=== PATIENT | female | born 1975 | race Caucasian/White ===

== ENCOUNTER 2019-02-07 07:57 | Day surgery (SDC) | payer OTHER ==
[2019-02-07 08:27] VITALS: BMI 35.2
[2019-02-07 08:31] VITALS: BP 129/75; TEMP 98.8
[2019-02-07] MEDS ORDERED: hydrALAZINE 20 MG/ML VIAL SLOW IVP PRN (08:41)
--- NOTE | 2019-02-07 08:45 | PDOC.FPROB ---
FMR OB H&P: HPI - History of Present Illness Chief Complaint: ECV History of Present Illness: 43 yo @ 38.0 wk by LMP c/w 9.6wk US presents for ECV for breech presentation noted on BPP performed 3 days ago. She had [place] contractions overnight which have resolved. Feels that she lost her mucous plug. Denies VB, VD, N/V. Has been checking BG and notes they are at goal. Fasting in -. Primary Care Physician: Nguyen FMR OB H&P: Current - Care : 4 Para: 3003 Gestational age: 38.0 Due date: 02/21 Dating Criteria: 9.6 wk US Course/Complications: GDM, AMA, Obesity, short intergestational period - OB Labs Blood type: A RH: positive Antibody Screen: negative HIV: negative RPR: negative HepBsAg: negative Rubella: immune Quad screen: negative Gonorrhea: negative Chlamydia: negative Pap Smear: NILM, HPV neg 05/17/2018 1 hour gtt: 137 3 hour GTT: 96, 201, 117, 146 A1c: 5.2 FMR OB H&P: History - Past Medical History PMH: Asthma, depression - OB History OB History: GDM in 2nd , insulin controlled Anemia in 2018 Seasonal allergies - DIRECTOR CORPORATE History DIRECTOR CORPORATE History: Last pap 2018 - Surgical History Sx History: None - Social History Social History: No tobacco, alcohol, drug use. FMR OB H&P: Medications - Current Home Medications: Medication Instructions Recorded Confirmed Type Vit,Calc76/Iron/Folic 1 tablet PO DAILY 02/07/19 02/07/19 History [Prenatabs Rx Tablet] Sertraline HCl 50 mg PO HS #30 tablet 02/07/19 Rx Allergies/Adverse Reactions: Allergies Allergy/AdvReac Type Severity Reaction Status Date / Time No Known Allergies Allergy Unverified 02/07/19 08:24 FMR OB H&P: ROS - Review of Systems General: denies: weight/appetite/sleep changes Cardiovascular: denies: palpitation, edema Respiratory: denies: shortness of breath, exercise intolerance Gastrointestinal: denies: nausea, vomiting Genitourinary (Female): reports: contractions. denies: dysuria, vaginal discharge, vaginal bleeding Musculoskeletal: denies: pain, swelling Neurologic: denies: weakness, headache Integumentary: denies: itching, rash Psychological: reports: depression. denies: anxiety FMR OB H&P: Vital Signs - Maternal Vital signs: Vital Signs - First Documented Temp Pulse Resp BP 98.8 F 99 18 129/75 02/07/19 08:15 02/07/19 08:15 02/07/19 08:15 02/07/19 08:15 - Heart Tones Baseline: 150 Variability: moderate Acceleration: present Deceleration: absent FMR OB H&P: Physical Exam - Physical Exam General: awake, alert and oriented HEENT: normocephalic and atraumatic Heart: RRR, normal S1/S2 General: CTAB, no respiratory distress Abdomen: soft, gravid, non-tender, bowel sound present Musculoskeletal: pulses present Skin: good tugor, capillary refill <2 seconds Lymphatic: no unusual bruising or bleeding Psychiatric: intact recent and remote memory - Pelvic Exam Vulva: normal hair distribution SVE: 08/26/high Presentation: vertex FMR OB H&P: A/P - Problem List (1) Supervision of elderly multigravida Status: Acute Code(s): O09.529 - SUPERVISION OF ELDERLY MULTIGRAVIDA, UNSPECIFIED TRIMESTER (2) GDM, class A1 Status: Acute Code(s): O24.410 - GESTATIONAL DIABETES MELLITUS IN , DIET CONTROLLED (3) Depression affecting Status: Acute Code(s): O99.340 - [facility] MENTAL DISORDERS COMPLICATING , UNSP TRIMESTER; F32.9 - MAJOR DEPRESSIVE DISORDER, SINGLE EPISODE, UNSPECIFIED (4) Short interval between pregnancies affecting in third trimester, antepartum Status: Acute Code(s): O09.893 - SUPERVISION OF OTHER HIGH RISK PREGNANCIES, THIRD TRIMESTER (5) Asthma Status: Acute Code(s): J45.909 - UNSPECIFIED ASTHMA, UNCOMPLICATED (6) Advanced maternal age (AMA), 40 years or greater Status: Acute Code(s): [id number] - Discussion: Date/Time: 02/07/19 08 sIUP - was breech on US 3 days ago, now confirmed vertex today on US - FHT 150, reactive NST GDMA1 - 1 hr 137, 3hGTT 3/4 elevated - BG at goal per patient AMA -getting weekly mBPP - quad screen wnl - has seen MFM High risk for preeclampsia - continue aspirin Depression - on sertraline Asthma - well controlled, infrequent neb use Short intergestational period - last delivery 01/16/2018, Dispo: Will discharge home. She has follow up at [facility] and BPP scheduled next Sunday. She has Pit induction scheduled for 02/17. Will need to be scanned each visit to confirm vertex. This H&P was discussed with Dr. Howard who agree with the above documentation and plan. Addendum - Attending - Attending Attestation Date/Time: 02/08/19 1034 I personally evaluated the patient and discussed the management with Dr. Arreola I agree with the History, Examination, Assessment and Plan documented above with any addition or exceptions noted below- 43 yo @38 weeks here for external cephalic version. Occ ctx, Denies LOF, VB (+) FM. Bedside USG performed which showed vertex presentation. Discussed with patient. Category 1 FHTs. Will d/c home and f/u as scheduled
== END 2019-02-07 11:20 | disposition home health service (06) ==
LOC: L&D/OP 07:57
PROVIDERS: ATTEND Family Medicine
DX: O24.410 Gestational diabetes mellitus in pregnancy, diet controlled (principal); O09.523 Supervision of elderly multigravida, third trimester; O99.343 Other mental disorders complicating pregnancy, third trimester; F32.9 Major depressive disorder, single episode, unspecified; O99.513 Diseases of the respiratory system complicating pregnancy, third trimester; J45.909 Unspecified asthma, uncomplicated; O99.213 Obesity complicating pregnancy, third trimester; E66.9 Obesity, unspecified; Z3A.38 38 weeks gestation of pregnancy; Z79.899 Other long term (current) drug therapy
CPT/HCPCS: 76815; 99282

== ENCOUNTER 2019-02-15 06:09 | Inpatient (IN) | payer OTHER ==
[2019-02-15 06:47] VITALS: BMI 35.2
[2019-02-15] MEDS ORDERED: NS / Oxytocin 40 units/1000ml 1,000 ML IV PRN ×2 (07:28→07:34)
[2019-02-15] MEDS ORDERED: hydrALAZINE 20 MG/ML VIAL SLOW IVP PRN ×2 (07:28→14:54)
[2019-02-15] MEDS ORDERED: Ondansetron PF 4 MG/2 ML Vial IVP PRN (07:28)
[2019-02-15] MEDS ORDERED: Acetaminophen 500 MG TAB PO PRN (07:28)
[2019-02-15] MEDS ORDERED: Lidocaine 1% (PF) 30 ML VIAL SC PRN ×2 (07:28→07:34)
[2019-02-15] MEDS ORDERED: Butorphanol Tartrate 1 MG/ML VIAL SLOW IVP PRN (07:28)
[2019-02-15] MEDS ORDERED: Ibuprofen 800 MG TAB PO PRN (07:28)
[2019-02-15] MEDS ORDERED: Promethazine HCl 25 MG/ML VIAL IM PRN (07:28)
[2019-02-15] MEDS ORDERED: Fentanyl 4 mcg/Bup 0.1% Cadd 100 ML ONE (07:28)
--- NOTE | 2019-02-15 07:28 | PDOC.FPROB ---
FMR OB H&P: HPI - History of Present Illness Chief Complaint: contractions Indentification: 43 yo @39.1wks by 9.6wk sono History of Present Illness: 43 yo @39.1wks by 9.6wk sono here with contractions. Started yesterday, she was able to sleep through them, but they woke her up at 0400 today and were painful. Ctx were q5-7 min then became q3-5 min. +FM. No VB, No LOF. No vaginal discharge or dysuria. Primary Care Physician: MIGUEL ANGEL Conrad FMR OB H&P: Current - Care : 4 Para: 3 Gestational age: 39.1 Due date: 02/21/2019 Dating Criteria: 9.6 wk sono Course/Complications: - A1, GDM - Depression - Seasonal allergies - OB Labs Blood type: A RH: positive Antibody Screen: negative HIV: negative RPR: negative HepBsAg: negative Rubella: immune Quad screen: negative Gonorrhea: negative Chlamydia: negative 1 hour gtt: 137 3 hour GTT: 96, 201, 117, 146 GBS: negative FMR OB H&P: History - Past Medical History PMH: Seasonal allergies on Zyrtec Depression, on zoloft - OB History OB History: 3 prior All at term. 1. 41 wga IOL 2. 39 IOL, GDM 3. 39 wga, IOL All babies ~8 lbs. - TAILMAN History TAILMAN History: none significant - Social History Social History: , Denies smoking, alcohol, drugs. FMR OB H&P: Medications - Current Home Medications: Medication Instructions Recorded Confirmed Type Vit,Calc76/Iron/Folic 1 tablet PO DAILY 02/07/19 02/15/19 History [Prenatabs Rx Tablet] Sertraline HCl 50 mg PO HS #30 tablet 02/07/19 02/15/19 Rx Acetaminophen/Diphenhydramine 1 each PO QPM 02/15/19 02/15/19 History [Tylenol Pm Ex-Strength Caplet] Aspirin [Aspirin EC] 81 mg PO DAILY 02/15/19 02/15/19 History Cetirizine HCl [Zyrtec] 10 mg PO DAILY 02/15/19 02/15/19 History Allergies/Adverse Reactions: Allergies Allergy/AdvReac Type Severity Reaction Status Date / Time No Known Allergies Allergy Unverified 02/15/19 06:37 FMR OB H&P: ROS - Review of Systems General: denies: fever/chills Eyes: denies: vision changes ENT: reports: nasal congestion. denies: sore throat Cardiovascular: denies: chest pain Respiratory: denies: cough, congestion Gastrointestinal: reports: abdominal pain. denies: vomiting, diarrhea, constipation Genitourinary (Female): reports: contractions. denies: dysuria, vaginal discharge, vaginal pain, vaginal bleeding Neurologic: denies: seizures Integumentary: denies: itching Psychological: reports: depression. denies: anxiety FMR OB H&P: Vital Signs - Maternal Vital signs: Vital Signs - First Documented Temp Pulse Resp BP 98.2 F 88 20 135/81 02/15/19 06:35 02/15/19 06:35 02/15/19 06:35 02/15/19 06:35 - Heart Tones Baseline: 160 Variability: moderate Acceleration: present Deceleration: absent Category: category 1 [place] contractions every: 3-4 min FMR OB H&P: Physical Exam - Physical Exam General: NAD, awake, alert and oriented (breathing through contractions) HEENT: normocephalic and atraumatic, conjunctiva clear, no scleral icterus, grossly normal hearing Heart: pulses present, no edema General: no respiratory distress Abdomen: soft, gravid, non-tender Musculoskeletal: pulses present Neurological: no focal deficit Skin: no rash Lymphatic: no purpura, no petechia Psychiatric: intact recent and remote memory, normal mood and affect - Pelvic Exam SVE: 5/50/-2 per nurse Membranes: intact Presentation: cephalic, confirmed w/ sono at bedside Estimated Weight: 8 lbs FMR OB H&P: A/P - Problem List (1) Third trimester Current Visit: Yes Status: Acute Code(s): Z34.93 - ENCNTR FOR SUPRVSN OF NORMAL PREG, UNSP, THIRD TRIMESTER (2) Advanced maternal age (AMA), 40 years or greater Current Visit: No Status: Acute Code(s): [id number] - (3) GDM, class A1 Current Visit: No Status: Acute Code(s): O24.410 - GESTATIONAL DIABETES MELLITUS IN , DIET CONTROLLED (4) Supervision of elderly multigravida Current Visit: No Status: Acute Code(s): O09.529 - SUPERVISION OF ELDERLY MULTIGRAVIDA, UNSPECIFIED TRIMESTER Disposition: 43 yo here for active labor: Active labor at term, 39.1 wga: - Admit to L&D - Continuous EFM, toco - q2h cervical check - desires epidural A1, GDM: - glucose checks q4h AMA Multigravid Discussion: Date/Time: 02/15/19 0703 This H&P was discussed with Dr. Kumar and Dr. Kennedy who agree with the above documentation and plan. Signature: Kiya Duncan MD [email or web address] Addendum - Attending - Attending Attestation Date/Time: 02/15/19 5111 I personally evaluated the patient and discussed the management with Dr. Duncan I agree with the History, Examination, Assessment and Plan documented above with any addition or exceptions noted below. Admit for spontaneous labor at term. Monitor glucose. Anticipate
[2019-02-15] MEDS ORDERED: Lactated Ringer's 1,000 ML IV SCH (07:30)
[2019-02-15 08:18] LABS: Hemoglobin 11.3 g/dL (12.0-16.0); Mean Corpuscular HGB CONC 35.6 g/dL (32.0-36.0); Mean Corpuscular Hemoglobin 31.2 pg (27.0-31.0); Mean Corpuscular Volume 87.8 fL (78.0-98.0); Mean Platelet Volume 8.2 fL (7.4-10.4); Platelet Count 185 thou/uL (130-400); RBC Distribution Width 12.6 % (11.5-14.5); White Blood Cell (WBC) Count 6.2 thou/uL (4.8-10.8)
[2019-02-15] MEDS ORDERED: Bupivacaine 0.25% HCL 30 ML VIAL ONE (09:00)
[2019-02-15 09:07] LABS: HBSAg Index 0.13 S/CO (0-0.99); Hep B Surf Ag Non-Reactive S/CO (NonReactive); Syphilis Antibody Nonreactive (Nonreactive); Syphilis Antibody Index 0.03 S/CO (<1.00 Non-Reactive)
--- NOTE | 2019-02-15 09:59 | PDOC.LDPN ---
Labor & Delivery Progress Note - Subjective Subjective: comfortable - Objective Vital signs reviewed and normal: yes General: NAD Uterine fundus: non tender SVE: 6/80/-2 FHT: category 1, variability present [place] contractions every: 3-5 AROM: meconium stained fluid (light mec) - Assessment (1) Term Code(s): Z34.90 - ENCNTR FOR SUPRVSN OF NORMAL , UNSP, UNSP TRIMESTER Current Visit: Yes Status: Acute Plan: continue plan of care
--- NOTE | 2019-02-15 14:16 | PDOC.OPDEL ---
OB Operative/Delivery Note Delivery Dr/Surgeon: Alina Arreola Cotter Pre-Delivery Diagnosis: active labor Procedure/Post Delivery Dx: spontaneous vaginal delivery Anesthesia: epidural - Additional Findings/Plan Placenta delivered: spontaneous Repaired Obstetrical Laceration: none Estimated blood loss: 50 mL Compilations/Other Findings: Delivering Physician: Alina Arreola Attending: José Procedure: Spontaneous Vaginal Delivery Anesthesia: epidural EBL: 50 ml Pre-op Diagnosis: 1. Term intrauterine in labor 2. GDMA1 3. Depression 4. AMA 5. Asthma 6. Short intergestational period Post-op Diagnosis: 1. Term intrauterine , delivered 2. same as above Indications: A 43 y/o female presents in active labor. Delivery Note: This is 43 yo F @ 39.1 wks who delivered a viable F at 13:35 on 02/15/19. Following an uneventful antepartum course, a vigorous female was delivered over an intact perineum in the OA position. Anterior Shoulder and then remainder of the body delivered. No nuchal cord. The head was held down and mouth and nares were bulb suctioned. Cord clamped after delayed cord clamping and cut and cord blood collected. Placenta delivered intact in the [place] presentation with a 3 vessel cord noted. Fundal massage was performed and the fundus was firm. The cervix and vagina were inspected. First degree perineal laceration noted and was hemostatic. went to nursery in good condition for routine care. Apgars were 8/9 at 1 & 5 minutes, respectively. Patient tolerated delivery well and went to after routine recovery/care. Post delivery plan: routine recovery Addendum - Attending - Attending Attestation Date/Time: 02/15/192001 I was present for and assisted in the entire uncomplicated performed by Morgan Sauceda. I agree with documented findings as above.
[2019-02-15] MEDS ORDERED: diphenhydrAMINE 25 MG CAP PO PRN (14:54)
[2019-02-15] MEDS ORDERED: Bisacodyl 10 MG SUPP PR PRN (14:54)
[2019-02-15] MEDS ORDERED: Lanolin Ointment 7 GM TUBE TOP PRN (14:54)
[2019-02-15] MEDS ORDERED: NS / Oxytocin 40 units/1000ml 1,000 ML IV SCH (14:54)
[2019-02-15] MEDS ORDERED: Milk Of Magnesia 30 ML UDCUP PO PRN (14:54)
[2019-02-15] MEDS: Ibuprofen 800 MG TAB PO SCH ×2 (15:40→23:09)
[2019-02-15] MEDS: Ferrous Sulfate 325 MG TAB PO SCH (21:55)
[2019-02-15] MEDS: Docusate Calcium (SURFAK) 240 MG CAP PO SCH (23:09)
[2019-02-16] MEDS: Ibuprofen 800 MG TAB PO SCH ×3 (05:57→21:34)
--- NOTE | 2019-02-16 06:27 | PDOC.PP ---
Post Progress Note Post Day #: 1 Subjective: 43 yo recovering well with routine course. Reports mild uterine contractions/cramping. She has no concerns. PO intake tolerated: yes Flatus: yes Ambulation: yes Vital Signs (12 hours) Temp Pulse Resp BP Pulse Ox 02/16/19 05:58 97.8 F 76 18 133/70 98 02/16/19 00:00 97.6 F 78 20 123/71 97 Weight Weight 90.265 kg - Physical Examination General: NAD Cardiovascular: no m/r/g, RRR Respiratory: clear to auscultation bilaterally, non-labored breathing Abdominal: no distention, appropriately TTP Fundus firm & at: below umbilicus Extremities: negative homans (B) Neurological: no gross focal deficits Psychiatric: A&Ox3 Result Diagrams: 02/15/19 08:01 Additional Labs: Post Labs Blood Type A POSITIVE 02/15/19 08:01 Hep Bs Antigen Non-Reactive S/CO (NonReactive) 02/15/19 08:01 (1) Normal vaginal delivery Code(s): O80 - ENCOUNTER FOR FULL-TERM UNCOMPLICATED DELIVERY Status: Acute (2) Advanced maternal age (AMA), 40 years or greater Code(s): [id number] - Status: Acute (3) Asthma Code(s): J45.909 - UNSPECIFIED ASTHMA, UNCOMPLICATED Status: Acute (4) Depression affecting Code(s): O99.340 - [facility] MENTAL DISORDERS COMPLICATING , UNSP TRIMESTER; F32.9 - MAJOR DEPRESSIVE DISORDER, SINGLE EPISODE, UNSPECIFIED Status: Acute (5) GDM, class A1 Code(s): O24.410 - GESTATIONAL DIABETES MELLITUS IN , DIET CONTROLLED Status: Acute - Assessment/Plan - Recovering well, lochia decreasing - Bottle feeding - Undecided on contraception GDMA1 - BG checks wnl - plan for 2hr GTT 4-12 wks Depression - continue sertraline - pt has history of depression and was started on sertraline during this . Asthma - infrequent neb use at home Dispo: Continue routine care. May consider discharge later this afternoon vs tomorrow morning. Plan for follow up at [facility] in 2 weeks. Addendum - Attending - Attending Attestation Date/Time: 02/16/19 1314 I personally evaluated the patient and discussed the management with Dr. Arreola I agree with the History, Examination, Assessment and Plan documented above with any addition or exceptions noted below. Stable PPD #1 s/p uncomplicated Meeting appropriate milestones. Anticipate d/c to home on PPD#2.
[2019-02-16] MEDS: Prenatal Vitamin 1 TAB PO SCH (09:34)
[2019-02-16] MEDS: Docusate Calcium (SURFAK) 240 MG CAP PO SCH ×2 (09:34→21:33)
[2019-02-16] MEDS: Loratadine 10 MG TAB PO SCH (09:34)
[2019-02-16] MEDS: Ferrous Sulfate 325 MG TAB PO SCH ×2 (09:35→14:07)
[2019-02-16] MEDS: HYDROcodone/Acetaminophen 5/325 mg Tablet PO PRN (11:38)
[2019-02-16] MEDS ORDERED: Adacel (T-DAP) 0.5 ML SYRINGE IM ONE (14:54)
[2019-02-17] MEDS: HYDROcodone/Acetaminophen 5/325 mg Tablet PO PRN (04:44)
[2019-02-17] MEDS: Ibuprofen 800 MG TAB PO SCH ×2 (06:14→14:06)
[2019-02-17] MEDS: Ferrous Sulfate 325 MG TAB PO SCH ×2 (07:54→15:11)
[2019-02-17 08:13] VITALS: BP 127/75; TEMP 97.8
[2019-02-17] MEDS: Prenatal Vitamin 1 TAB PO SCH (10:37)
[2019-02-17] MEDS: Loratadine 10 MG TAB PO SCH (10:37)
[2019-02-17] MEDS: Docusate Calcium (SURFAK) 240 MG CAP PO SCH (10:37)
--- NOTE | 2019-02-17 11:36 | PDOC.PP ---
Post Progress Note Post Day #: 2 Subjective: Feeling well. No overnight events. Was requiring [place] for pain but she reports she did not know it was hydrocodone and no longer wants to take it. Motrin is now providing enough relief. She is concerned about her daughters respiratory status. Would like to stay in bed and breakfast to be near her. Reports URI symptoms have resolved with the exception of hoarseness. PO intake tolerated: yes Flatus: yes Ambulation: yes Vital Signs (12 hours) Temp Pulse Resp BP Pulse Ox 02/17/19 08:12 97.8 F 86 20 127/75 96 Weight Weight 90.265 kg - Physical Examination General: NAD Cardiovascular: no m/r/g, RRR Respiratory: clear to auscultation bilaterally, non-labored breathing Abdominal: + bowel sounds, lochia, no distention, appropriately TTP Fundus firm & at: below umilicus Skin: no rash Neurological: no gross focal deficits Psychiatric: A&Ox3, normal affect Result Diagrams: 02/15/19 08:01 Additional Labs: Post Labs Blood Type A POSITIVE 02/15/19 08:01 Hep Bs Antigen Non-Reactive S/CO (NonReactive) 02/15/19 08:01 (1) Normal vaginal delivery Code(s): O80 - ENCOUNTER FOR FULL-TERM UNCOMPLICATED DELIVERY Status: Acute (2) Advanced maternal age (AMA), 40 years or greater Code(s): [id number] - Status: Acute (3) GDM, class A1 Code(s): O24.410 - GESTATIONAL DIABETES MELLITUS IN , DIET CONTROLLED Status: Acute - Assessment/Plan - Meeting PP milestones. - Bottle feeding - Undecided on contraception, interested in Paraguard. - Follow up in 2 weeks at [facility] - Will discharge to bed and breakfast GDMA1 - BG checks wnl - plan for 2hr GTT 4-12 wks Depression - Continue sertraline - Hx of depression, started on Sertraline during . Asthma
== END 2019-02-17 15:42 | disposition home or self-care (01) | DRG 807 ==
LOC: L&D/OP 06:09 → L&D 09:21 → 3SW 22:58
PROVIDERS: ADMIT Family Medicine; ATTEND Family Medicine
PROC: 10E0XZZ Delivery of Products of Conception, External Approach (ICD-10-PCS; principal; 2019-02-15)
PROC: 10907ZC Drainage of Amniotic Fluid, Therapeutic from Products of Conception, Via Natural or Artificial Opening (ICD-10-PCS; 2019-02-15)
PROC: 3E033VJ Introduction of Other Hormone into Peripheral Vein, Percutaneous Approach (ICD-10-PCS; 2019-02-15)
DX: O24.420 Gestational diabetes mellitus in childbirth, diet controlled (principal); Z37.0 Single live birth; O99.344 Other mental disorders complicating childbirth; F32.9 Major depressive disorder, single episode, unspecified; O70.0 First degree perineal laceration during delivery; O77.0 Labor and delivery complicated by meconium in amniotic fluid; J45.909 Unspecified asthma, uncomplicated; O99.52 Diseases of the respiratory system complicating childbirth; Z3A.39 39 weeks gestation of pregnancy; Z79.899 Other long term (current) drug therapy
CPT/HCPCS: 36415; 36416; 51702; 85027; 86780; 86850; 86900; 86901; 87340; 87633; 87798; 99285; S0020